=== PATIENT | female | born 1990 | race Caucasian/White ===

== ENCOUNTER 2021-08-11 02:25 | Emergency (ER) | payer SELFPAY ==
[~2021-08-11] VITALS: Ht 165.1 cm; Wt 46.9 kg
--- NOTE | 2021-08-11 02:40 | NUR ---
PT AMBULATED TO ER WITH STEADY GAIT, C/O DEWITT, L SIDE FACIAL DROOPING AND BLE NUMBNESS, SLURRED SPEECH. A/O X3, NO SOB OR LABORED BREATHING. DENIES CP/PRESSURE. UPON EVAL PT NOTED WITH CLEAR SPEECH, COMPLETE SENTENCES. HAND PLUCK SEPARATOR ARE EQUAL. EYES PERRLA.
--- NOTE | 2021-08-11 02:42 | NUR ---
DR. LIMON AT BEDSIDE, MSE IN PROGRESS.
[2021-08-11] MEDS ORDERED: LORA2TAB95 PO (02:47)
[2021-08-11 02:59] LABS: HEMATOCRIT 38.8 % (31.2-41.9); MEAN CORPUSCULAR HEMOGLOBIN 28.4 uug (24.7-32.8); MEAN CORPUSCULAR VOLUME 84.9 fL (75.5-95.3); PLATELET COUNT (AUTO) 177 K/uL (179-408)
[2021-08-11] MEDS ORDERED: SUMATRIPTAN SUCCINATE 6 MG/0.5 ML VIAL SQ ONE ×2 (03:00→03:08)
[2021-08-11] MEDS ORDERED: IV NS 1000 ML 1,000 ML IV ONE (03:00)
[2021-08-11] MEDS ORDERED: NAPROXEN 500 MG TABLET PO ONE (03:00)
[2021-08-11] MEDS ORDERED: NAPROXEN 500 MG TABLET ONE (03:09)
[2021-08-11 03:13] LABS: ALANINE AMINOTRANSFERASE 20 U/L (14-59); ALKALINE PHOSPHATASE 63 U/L (50-136); ASPARTATE AMINOTRANSFERASE 15 U/L (15-37); BILIRUBIN,TOTAL 0.3 mg/dL (0.2-1.0); CARBON DIOXIDE 24 mmol/L (21-32); CHLORIDE 106 mmol/L (98-107); CREATININE 0.8 mg/dL (0.6-1.3); GLUCOSE 95 mg/dL (74-106); POTASSIUM 3.3 mmol/L (3.5-5.1); TOTAL PROTEIN, SERUM 7.9 g/dL (6.4-8.2); UREA NITROGEN, BLOOD 6 mg/dL (7-18)
[2021-08-11 03:14] LABS: BILIRUBIN,DIRECT < 0.1 mg/dL (0.0-0.2)
--- NOTE | 2021-08-11 03:19 | NUR ---
PT TAKEN DOWN FOR CT.
--- NOTE | 2021-08-11 03:27 | NUR ---
PT RETURNED FROM CT, STABLE CONDITION.
[2021-08-11] MEDS ORDERED: POTASSIUM BICARBONATE/CIT AC 25 MEQ TABLET.EFF PO ONE (03:30)
[2021-08-11 03:37] LABS: MAGNESIUM 1.7 mg/dL (1.8-2.4)
[2021-08-11] MEDS ORDERED: LORAZEPAM 1 MG TABLET ONE ×2 (03:43→04:45)
[2021-08-11] MEDS ORDERED: LORAZEPAM 0.5 MG TABLET PO ONE ×2 (03:45→04:30)
[2021-08-11 03:46] LABS: *BILIRUBIN,URIN NEGATIVE (NEGATIVE); *KETONES,URINE NEGATIVE (NEGATIVE); *UROBILINOGEN,URINE 0.2 E.U./dl (NORMAL); LEUKOCYTE ESTERASE ,URINE 3+ (NEGATIVE); NITRITE, URINE NEGATIVE (NEGATIVE); UGLUCOSE NEGATIVE (NEGATIVE)
[2021-08-11 03:57] LABS: *BLOOD, URINE TRACE (NEGATIVE); *CLARITY,URINE HAZY (CLEAR); *COLOR,URINE STRAW (YELLOW)
[2021-08-11 03:58] LABS: BACTERIA,URINE MANY /HPF (NONE SEEN); RBC,URINE 0-3 /HPF (0-3); SQUAMOUS EPITHELIAL CELL,UR MANY /HPF (NONE SEEN)
[2021-08-11 04:05] LABS: *AMPHETAMINE, URINE NEGATIVE (NEGATIVE); *CANNABINOID, URINE NEGATIVE (NEGATIVE); *COCCAINE, URINE NEGATIVE (NEGATIVE); *OPIATE, URINE POSITIVE (NEGATIVE); *PHENCYCLIDINE SCREEN,URINE NEGATIVE (NEGATIVE)
[2021-08-11] MEDS ORDERED: POTASSIUM CHLORIDE 20 MEQ TAB.PRT.SR ONE (04:14)
[2021-08-11] MEDS ORDERED: MAGNESIUM SULFATE/D5W 200 ML ONE (04:14)
[2021-08-11] MEDS ORDERED: POTASSIUM CHLORIDE 20 MEQ TAB.PRT.SR PO ONE (04:15)
[2021-08-11] MEDS: MAGNESIUM SULFATE/D5W 100 ML IV SCH (04:15)
--- NOTE | 2021-08-11 05:05 | NUR ---
Patient discharged to home in stable condition. A/O x4, no changes in LOC. Denies any n/v/d. No dizziness/DEWITT. No facial drooping noted.Denies any pain/discomfort upon discharge. Written and verbal after care instructions given. Patient verbalizes understanding of instructions. Stressed follow up or return to ER for worsening s/s. Steady gait.
[2021-08-11 05:13] VITALS: BP 114/70
== END 2021-08-11 05:08 | disposition home or self-care (01) ==
LOC: ER 02:36
DX: R51.9 Headache, unspecified (principal); R41.82 Altered mental status, unspecified; F41.9 Anxiety disorder, unspecified; Z88.6 Allergy status to analgesic agent; E83.42 Hypomagnesemia
CPT/HCPCS: 36415; 70450; 80048; 80076; 80307; 81001; 82607; 83735; 85025; 85651; 87086; 96361; 96365; 99284; J3475; A4663; J3030; J7030